=== PATIENT | male | born 1985 | race Two or more races ===

== ENCOUNTER 2019-07-30 11:50 | Inpatient (IN) | payer OTHER ==
[~2019-07-30] VITALS: Ht 182.9 cm; Wt 97.2 kg
[2019-07-30] MEDS ORDERED: ONDANSETRON HCL 4 MG/2 ML VIAL IVP PRN (12:15)
[2019-07-30] MEDS: PANTOPRAZOLE SODIUM 40 MG DR TABLET PO SCH (12:15)
[2019-07-30] MEDS ORDERED: IPRATROPIUM BROMIDE 0.5 MG/2.5 ML NEB SOLUTION NEB PRN (12:15)
[2019-07-30] MEDS ORDERED: HYDROCODONE/ACETAMINOPHEN 5-325 MG TABLET PO PRN (12:15)
[2019-07-30] MEDS ORDERED: ALBUTEROL SULFATE 2.5 MG/0.5 ML NEB SOLUTION NEB PRN (12:15)
[2019-07-30] MEDS ORDERED: 0.9% SODIUM CHLORIDE 10 ML SYRINGE IVP PRN (12:15)
[2019-07-30] MEDS ORDERED: MAGNESIUM HYDROXIDE SUSPENSION 30 ML UDCUP PO PRN (12:15)
[2019-07-30] MEDS ORDERED: ACETAMINOPHEN 325 MG TABLET PO PRN (12:15)
[2019-07-30] MEDS ORDERED: DOCUSATE SODIUM 100 MG CAPSULE PO PRN (12:15)
[2019-07-30] MEDS ORDERED: BISACODYL 10 MG RECTAL RECTAL SUPPOSITORY PR PRN (12:15)
[2019-07-30 14:26] VITALS: BP 137/87
[2019-07-30 20:10] VITALS: BP 134/89
[2019-07-30 23:25] VITALS: BP 135/95
[2019-07-31 05:40] VITALS: BP 129/90
[2019-07-31 07:30] VITALS: BP 116/84
[2019-07-31] MEDS: PANTOPRAZOLE SODIUM 40 MG DR TABLET PO SCH (08:57)
[2019-07-31] MEDS ORDERED: LORazepam 2 MG/ML VIAL IM PRN (09:15)
[2019-07-31] MEDS ORDERED: HALOPERIDOL LACTATE 5 MG/ML VIAL IM PRN (09:15)
[2019-07-31 11:47] VITALS: BP 140/81
[2019-08-01 00:30] VITALS: BP 124/76
[2019-08-01 04:54] LABS: AMPHET/METH SCREEN,URINE NEGATIVE (NEGATIVE); BARBITURATE SCREEN, URINE NEGATIVE (NEGATIVE); BENZODIAZEPINES SCREEN,URINE NEGATIVE (NEGATIVE); CANNABINOID SCREEN,URINE POSITIVE (NEGATIVE); COCAINE SCREEN,URINE NEGATIVE (NEGATIVE); METHADONE SCREEN, URINE NEGATIVE (NEGATIVE); OPIATE SCREEN,URINE NEGATIVE (NEGATIVE)
[2019-08-01 04:59] LABS: PHENCYCLIDINE SCREEN,URINE NEGATIVE (NEGATIVE)
[2019-08-01 05:55] VITALS: BP 129/87
[2019-08-01 08:05] VITALS: BP 141/96
[2019-08-01] MEDS ORDERED: HALOPERIDOL LACTATE 5 MG/ML VIAL IM ONE (08:45)
[2019-08-01] MEDS ORDERED: LORazepam 2 MG/ML VIAL IM ONE (08:45)
[2019-08-01] MEDS: PANTOPRAZOLE SODIUM 40 MG DR TABLET PO SCH (08:59)
[2019-08-01 16:59] VITALS: BP 121/76
[2019-08-01 22:34] VITALS: BP 109/72
[2019-08-02 06:35] VITALS: BP 138/85
[2019-08-02 07:09] VITALS: BP 132/94
[2019-08-02] MEDS: PANTOPRAZOLE SODIUM 40 MG DR TABLET PO SCH (07:59)
[2019-08-02 11:26] VITALS: BP 136/83
[2019-08-02 15:21] VITALS: BP 133/94
[2019-08-03 06:39] VITALS: BP 135/79
[2019-08-03] MEDS: PANTOPRAZOLE SODIUM 40 MG DR TABLET PO SCH (08:41)
[2019-08-03 11:48] VITALS: BP 140/87
[2019-08-03 15:00] VITALS: BP 143/81
[2019-08-03] MEDS ORDERED: LORazepam 2 MG/ML VIAL IM ONE (17:15)
[2019-08-03] MEDS ORDERED: HALOPERIDOL LACTATE 5 MG/ML VIAL IM ONE (17:15)
[2019-08-03 20:05] VITALS: BP 126/68
[2019-08-03 23:55] VITALS: BP 126/68
[2019-08-04 05:08] VITALS: BP 126/73
[2019-08-04] MEDS: PANTOPRAZOLE SODIUM 40 MG DR TABLET PO SCH (09:00)
[2019-08-04 15:53] VITALS: BP 135/66
[2019-08-04 19:09] VITALS: BP 140/70
[2019-08-05 07:37] VITALS: BP 145/87
[2019-08-05] MEDS: PANTOPRAZOLE SODIUM 40 MG DR TABLET PO SCH (08:15)
[2019-08-05 11:45] VITALS: BP 123/77
[2019-08-05 15:25] VITALS: BP 129/87
[2019-08-05 20:31] VITALS: BP 136/83
[2019-08-06 04:00] VITALS: BP 132/78
[2019-08-06 08:10] VITALS: BP 133/76
[2019-08-06] MEDS: PANTOPRAZOLE SODIUM 40 MG DR TABLET PO SCH (08:11)
[2019-08-06 11:43] VITALS: BP 135/70
[2019-08-06 15:56] VITALS: BP_SYST 123; BP_SYST 140; BP_DIAS 66; BP_DIAS 98
[2019-08-06 20:45] VITALS: BP 127/87
[2019-08-06 23:46] VITALS: BP 138/72
[2019-08-07 04:57] VITALS: BP 132/77
[2019-08-07 07:32] VITALS: BP 142/80
[2019-08-07] MEDS: PANTOPRAZOLE SODIUM 40 MG DR TABLET PO SCH (08:44)
[2019-08-07 11:34] VITALS: BP 143/86
[2019-08-07 14:58] VITALS: BP 138/82
[2019-08-07] MEDS ORDERED: HALOPERIDOL LACTATE 5 MG/ML VIAL IM PRN (15:15)
[2019-08-07 19:15] VITALS: BP 139/60
[2019-08-07] MEDS: RisperiDONE 2 MG TABLET PO SCH (19:43)
[2019-08-07 20:29] VITALS: BP 151/86
[2019-08-08] VITALS (7 sets, daily range): BP systolic 128–144; BP diastolic 74–87
[2019-08-08] MEDS: PANTOPRAZOLE SODIUM 40 MG DR TABLET PO SCH (09:00)
[2019-08-08] MEDS: RisperiDONE 2 MG TABLET PO SCH ×2 (09:26→20:58)
[2019-08-09 04:00] VITALS: BP 130/76
[2019-08-09 08:00] VITALS: BP 132/79
[2019-08-09] MEDS: PANTOPRAZOLE SODIUM 40 MG DR TABLET PO SCH (08:13)
[2019-08-09] MEDS: RisperiDONE 2 MG TABLET PO SCH ×2 (08:13→20:05)
[2019-08-09 11:20] VITALS: BP 118/63
[2019-08-09 15:00] VITALS: BP 127/80
[2019-08-09 19:23] VITALS: BP 140/100
[2019-08-09 23:17] VITALS: BP 127/86
[2019-08-10 05:52] VITALS: BP 116/76
[2019-08-10 08:22] VITALS: BP 141/85
[2019-08-10] MEDS: PANTOPRAZOLE SODIUM 40 MG DR TABLET PO SCH ×2 (08:41→09:00)
[2019-08-10] MEDS: RisperiDONE 2 MG TABLET PO SCH ×2 (08:41→21:45)
[2019-08-10 11:20] VITALS: BP 127/81
[2019-08-10] MEDS ORDERED: LORazepam 2 MG/ML VIAL IM ONE (14:15)
[2019-08-10] MEDS ORDERED: HALOPERIDOL LACTATE 5 MG/ML VIAL IM ONE (14:15)
[2019-08-10] MEDS ORDERED: DiphenhydrAMINE HCL 50 MG/ML VIAL IM SCH (14:15)
[2019-08-10] MEDS ORDERED: DiphenhydrAMINE HCL 50 MG/ML VIAL ONE (14:19)
[2019-08-10 21:46] VITALS: BP 118/68
[2019-08-11 05:05] VITALS: BP 137/80
[2019-08-11] MEDS: PANTOPRAZOLE SODIUM 40 MG DR TABLET PO SCH (09:00)
[2019-08-11] MEDS: RisperiDONE 2 MG TABLET PO SCH (09:35)
[2019-08-11 12:08] VITALS: BP 125/79
[2019-08-11] MEDS ORDERED: HALOPERIDOL LACTATE 5 MG/ML VIAL IM PRN (14:30)
[2019-08-11 15:50] VITALS: BP 97/51
[2019-08-11] MEDS: RisperiDONE CONC 2 MG/2 ML SOLUTION ORAL.SYG PO SCH ×3 (17:40→20:41)
[2019-08-11 17:45] VITALS: BP 133/80
[2019-08-11 23:08] VITALS: BP 140/79
[2019-08-12 05:45] VITALS: BP 142/84
[2019-08-12 07:25] VITALS: BP 143/82
[2019-08-12] MEDS: RisperiDONE CONC 2 MG/2 ML SOLUTION ORAL.SYG PO SCH ×3 (08:00→20:21)
[2019-08-12] MEDS: PANTOPRAZOLE SODIUM 40 MG DR TABLET PO SCH (09:00)
[2019-08-12] MEDS ORDERED: INFLUENZA VIRUS VACCINE QVS 2019-20 (3YR+)/PF 60 MCG/0.5 ML SYRINGE IM ONE (11:00)
[2019-08-12 12:15] VITALS: BP 140/68
[2019-08-12 15:47] VITALS: BP 136/73
[2019-08-12 20:26] VITALS: BP 136/89
[2019-08-12 23:30] VITALS: BP 108/72
[2019-08-13 05:53] VITALS: BP 119/75
[2019-08-13 08:32] VITALS: BP 141/75
[2019-08-13] MEDS: PANTOPRAZOLE SODIUM 40 MG DR TABLET PO SCH (08:38)
[2019-08-13] MEDS: RisperiDONE CONC 2 MG/2 ML SOLUTION ORAL.SYG PO SCH ×3 (08:38→21:06)
[2019-08-13 12:27] VITALS: BP 140/91
[2019-08-13 16:06] VITALS: BP 103/61
[2019-08-13 19:18] VITALS: BP 107/62
[2019-08-13 23:50] VITALS: BP 121/66
[2019-08-14] MEDS: RisperiDONE CONC 2 MG/2 ML SOLUTION ORAL.SYG PO SCH ×3 (10:08→20:07)
[2019-08-14] MEDS: PANTOPRAZOLE SODIUM 40 MG DR TABLET PO SCH (10:08)
[2019-08-14 10:12] VITALS: BP 133/78
[2019-08-14 12:12] VITALS: BP 135/64
[2019-08-14 15:54] VITALS: BP 123/67
[2019-08-14 20:02] VITALS: BP 129/72
[2019-08-15 06:41] VITALS: BP 132/58
[2019-08-15] MEDS: RisperiDONE CONC 2 MG/2 ML SOLUTION ORAL.SYG PO SCH ×4 (07:52→21:20)
[2019-08-15] MEDS: PANTOPRAZOLE SODIUM 40 MG DR TABLET PO SCH ×2 (07:52→08:49)
[2019-08-15 12:01] VITALS: BP 137/71
[2019-08-15 15:30] VITALS: BP 150/95
[2019-08-15 19:16] VITALS: BP 127/80
[2019-08-15 23:49] VITALS: BP 131/72
[2019-08-16] VITALS (7 sets, daily range): BP systolic 120–134; BP diastolic 73–92
[2019-08-16] MEDS: PANTOPRAZOLE SODIUM 40 MG DR TABLET PO SCH (09:00)
[2019-08-16] MEDS: RisperiDONE CONC 2 MG/2 ML SOLUTION ORAL.SYG PO SCH ×3 (09:39→20:24)
[2019-08-17 00:05] VITALS: BP 113/76
[2019-08-17] MEDS: RisperiDONE CONC 2 MG/2 ML SOLUTION ORAL.SYG PO SCH (08:56)
[2019-08-17] MEDS: PANTOPRAZOLE SODIUM 40 MG DR TABLET PO SCH (08:58)
[2019-08-17 09:00] VITALS: BP 133/71
[2019-08-17] MEDS ORDERED: RISP2 PO (12:18)
[2019-08-17 12:30] VITALS: BP 129/70
== END 2019-08-17 16:30 | DRG 885 ==
LOC: EMS 11:52 → 6S 12:30
PROVIDERS: ADMIT Internal Medicine; ATTEND Internal Medicine
DX: F20.9 Schizophrenia, unspecified (principal); F29 Unspecified psychosis not due to a substance or known physiological condition; F15.10 Other stimulant abuse, uncomplicated; R45.1 Restlessness and agitation
CPT/HCPCS: 80307; J1200; J1630; J2060

== ENCOUNTER 2019-09-12 11:05 | Inpatient (IN) | payer OTHER ==
[~2019-09-12] VITALS: Ht 177.8 cm; Wt 90.9 kg
[~2019-09-12 11:05] MED LIST: RISP2 PO
[2019-09-12] MEDS ORDERED: HALOPERIDOL LACTATE 5 MG/ML VIAL IM ONE (11:15)
[2019-09-12] MEDS ORDERED: LORazepam 2 MG/ML VIAL IM ONE (11:15)
[2019-09-12] MEDS ORDERED: DiphenhydrAMINE HCL 50 MG/ML VIAL IM ONE (11:15)
[2019-09-12] MEDS ORDERED: ONDANSETRON HCL 4 MG/2 ML VIAL IVP PRN (12:15)
[2019-09-12] MEDS ORDERED: ACETAMINOPHEN 325 MG TABLET PO PRN (12:15)
[2019-09-12 13:30] VITALS: BP 130/68
[2019-09-12] MEDS ORDERED: INFLUENZA VIRUS VACCINE QVS 2019-20 (3YR+)/PF 60 MCG/0.5 ML SYRINGE IM ONE (17:45)
[2019-09-12] MEDS ORDERED: QUEtiapine FUMARATE 25 MG TABLET PO PRN (21:00)
[2019-09-12] MEDS ORDERED: QUEtiapine FUMARATE 25 MG TABLET PO SCH (21:00)
[2019-09-12 23:15] VITALS: BP 126/79
[2019-09-14] MEDS ORDERED: ZOLPIDEM TARTRATE 5 MG TABLET PO PRN (14:15)
[2019-09-14] MEDS ORDERED: ONDANSETRON HCL 4 MG/2 ML VIAL IVP PRN (14:15)
[2019-09-14] MEDS ORDERED: ACETAMINOPHEN 325 MG TABLET PO PRN (14:15)
[2019-09-14] MEDS ORDERED: IPRATROPIUM BROMIDE 0.5 MG/2.5 ML NEB SOLUTION NEB PRN (14:15)
[2019-09-14] MEDS ORDERED: BISACODYL 10 MG RECTAL RECTAL SUPPOSITORY PR PRN (14:15)
[2019-09-14] MEDS ORDERED: ALBUTEROL SULFATE 2.5 MG/0.5 ML NEB SOLUTION NEB PRN (14:15)
[2019-09-14] MEDS ORDERED: MAGNESIUM HYDROXIDE SUSPENSION 30 ML UDCUP PO PRN (14:15)
[2019-09-14] MEDS: HEPARIN SODIUM,PORCINE 5,000 UNITS/ML VIAL SQ SCH (16:00)
[2019-09-14] MEDS: DOCUSATE SODIUM 100 MG CAPSULE PO SCH (21:00)
[2019-09-15] MEDS: HEPARIN SODIUM,PORCINE 5,000 UNITS/ML VIAL SQ SCH ×3 (08:00→15:49)
[2019-09-15] MEDS: DOCUSATE SODIUM 100 MG CAPSULE PO SCH ×2 (08:31→21:00)
[2019-09-15 11:45] VITALS: BP 124/72
[2019-09-16] MEDS: HEPARIN SODIUM,PORCINE 5,000 UNITS/ML VIAL SQ SCH ×2 (08:00→16:00)
[2019-09-16] MEDS: DOCUSATE SODIUM 100 MG CAPSULE PO SCH (09:00)
[2019-09-17] MEDS: HEPARIN SODIUM,PORCINE 5,000 UNITS/ML VIAL SQ SCH ×4 (08:00→23:59)
[2019-09-17] MEDS: DOCUSATE SODIUM 100 MG CAPSULE PO SCH ×2 (08:43→20:18)
[2019-09-17 22:27] LABS: AMPHET/METH SCREEN,URINE NEGATIVE (NEGATIVE); BARBITURATE SCREEN, URINE NEGATIVE (NEGATIVE); BENZODIAZEPINES SCREEN,URINE NEGATIVE (NEGATIVE); CANNABINOID SCREEN,URINE NEGATIVE (NEGATIVE); COCAINE SCREEN,URINE NEGATIVE (NEGATIVE); METHADONE SCREEN, URINE NEGATIVE (NEGATIVE); OPIATE SCREEN,URINE NEGATIVE (NEGATIVE); PHENCYCLIDINE SCREEN,URINE NEGATIVE (NEGATIVE)
[2019-09-18] MEDS: HEPARIN SODIUM,PORCINE 5,000 UNITS/ML VIAL SQ SCH ×2 (08:00→15:45)
[2019-09-18] MEDS: DOCUSATE SODIUM 100 MG CAPSULE PO SCH ×2 (09:00→21:00)
[2019-09-19] MEDS: HEPARIN SODIUM,PORCINE 5,000 UNITS/ML VIAL SQ SCH ×4 (08:00→23:21)
[2019-09-19] MEDS: DOCUSATE SODIUM 100 MG CAPSULE PO SCH ×2 (09:00→20:14)
[2019-09-19] MEDS ORDERED: HALOPERIDOL 5 MG TABLET PO PRN (13:00)
[2019-09-19] MEDS ORDERED: HALOPERIDOL LACTATE 5 MG/ML VIAL IM PRN (13:00)
[2019-09-20] MEDS: HEPARIN SODIUM,PORCINE 5,000 UNITS/ML VIAL SQ SCH ×3 (08:00→23:29)
[2019-09-20] MEDS: DOCUSATE SODIUM 100 MG CAPSULE PO SCH ×2 (09:00→20:08)
[2019-09-21] MEDS: HEPARIN SODIUM,PORCINE 5,000 UNITS/ML VIAL SQ SCH ×2 (08:00→15:57)
[2019-09-21] MEDS: DOCUSATE SODIUM 100 MG CAPSULE PO SCH ×2 (08:52→21:00)
[2019-09-22] MEDS: HEPARIN SODIUM,PORCINE 5,000 UNITS/ML VIAL SQ SCH ×3 (08:00→16:00)
[2019-09-22] MEDS: DOCUSATE SODIUM 100 MG CAPSULE PO SCH ×2 (08:40→20:53)
[2019-09-23] MEDS: HEPARIN SODIUM,PORCINE 5,000 UNITS/ML VIAL SQ SCH ×3 (08:00→16:00)
[2019-09-23] MEDS: DOCUSATE SODIUM 100 MG CAPSULE PO SCH ×2 (09:00→21:00)
[2019-09-24] MEDS: HEPARIN SODIUM,PORCINE 5,000 UNITS/ML VIAL SQ SCH ×3 (08:00→16:00)
[2019-09-24] MEDS: DOCUSATE SODIUM 100 MG CAPSULE PO SCH ×2 (09:00→21:00)
[2019-09-25] MEDS: HEPARIN SODIUM,PORCINE 5,000 UNITS/ML VIAL SQ SCH ×2 (08:00)
[2019-09-25] MEDS: DOCUSATE SODIUM 100 MG CAPSULE PO SCH (08:17)
== END 2019-09-25 12:57 | DRG 885 ==
LOC: EMS 11:06 → 6S 12:18
PROVIDERS: ADMIT Hospitalist; ATTEND Hospitalist
DX: F20.0 Paranoid schizophrenia (principal); F31.9 Bipolar disorder, unspecified; F41.9 Anxiety disorder, unspecified; Z53.29 Procedure and treatment not carried out because of patient's decision for other reasons; Z79.899 Other long term (current) drug therapy
CPT/HCPCS: 99291; J1200; J1630; J1644; J2060

== ENCOUNTER 2019-09-25 15:01 | Inpatient (IN) | payer OTHER ==
[~2019-09-25] VITALS: Ht 182.9 cm; Wt 93.0 kg
[2019-09-25] MEDS ORDERED: ACETAMINOPHEN 325 MG TABLET PO PRN ×2 (16:45→17:15)
[2019-09-25] MEDS ORDERED: 0.9% SODIUM CHLORIDE 10 ML SYRINGE IVP PRN (16:45)
[2019-09-25] MEDS ORDERED: MAGNESIUM HYDROXIDE SUSPENSION 30 ML UDCUP PO PRN (17:15)
[2019-09-25 18:02] VITALS: BP 134/85
[2019-09-25] MEDS ORDERED: INFLUENZA VIRUS VACCINE QVS 2019-20 (3YR+)/PF 60 MCG/0.5 ML SYRINGE IM ONE (19:00)
[2019-09-25] MEDS: DOCUSATE SODIUM 100 MG CAPSULE PO SCH (20:08)
[2019-09-26] MEDS: DOCUSATE SODIUM 100 MG CAPSULE PO SCH ×2 (08:47→20:38)
[2019-09-27] MEDS: DOCUSATE SODIUM 100 MG CAPSULE PO SCH ×2 (09:00→21:00)
[2019-09-28] MEDS: DOCUSATE SODIUM 100 MG CAPSULE PO SCH ×2 (09:00→21:00)
[2019-09-29] MEDS: DOCUSATE SODIUM 100 MG CAPSULE PO SCH ×2 (09:00→21:00)
[2019-09-30] MEDS: DOCUSATE SODIUM 100 MG CAPSULE PO SCH ×2 (08:40→20:32)
[2019-10-01] MEDS: DOCUSATE SODIUM 100 MG CAPSULE PO SCH ×2 (08:28→21:00)
[2019-10-02] MEDS: DOCUSATE SODIUM 100 MG CAPSULE PO SCH ×2 (08:38→21:00)
[2019-10-03] MEDS: DOCUSATE SODIUM 100 MG CAPSULE PO SCH ×2 (09:00→20:18)
[2019-10-04] MEDS: DOCUSATE SODIUM 100 MG CAPSULE PO SCH ×2 (08:18→20:20)
[2019-10-04] MEDS: HALOPERIDOL 5 MG TABLET PO SCH (20:20)
[2019-10-05] MEDS: HALOPERIDOL 5 MG TABLET PO SCH ×2 (09:00→21:00)
[2019-10-05] MEDS: DOCUSATE SODIUM 100 MG CAPSULE PO SCH ×2 (09:00→21:00)
[2019-10-06] MEDS: DOCUSATE SODIUM 100 MG CAPSULE PO SCH ×2 (07:40→21:00)
[2019-10-06] MEDS: HALOPERIDOL 5 MG TABLET PO SCH ×2 (07:40→21:00)
[2019-10-06] MEDS ORDERED: PIPERONYL BUTOXIDE/PYRETHRINS 120 ML SHAMPOO TP ONE (08:45)
[2019-10-07] MEDS: HALOPERIDOL 5 MG TABLET PO SCH ×2 (07:34→20:15)
[2019-10-07] MEDS: DOCUSATE SODIUM 100 MG CAPSULE PO SCH ×2 (07:34→20:15)
[2019-10-08] MEDS: HALOPERIDOL 5 MG TABLET PO SCH ×2 (09:00→21:00)
[2019-10-08] MEDS: DOCUSATE SODIUM 100 MG CAPSULE PO SCH ×2 (09:00→21:00)
[2019-10-09] MEDS: HALOPERIDOL 5 MG TABLET PO SCH ×2 (09:00→20:56)
[2019-10-09] MEDS: DOCUSATE SODIUM 100 MG CAPSULE PO SCH ×2 (09:00→20:57)
[2019-10-10] MEDS: HALOPERIDOL 5 MG TABLET PO SCH (09:00)
[2019-10-10] MEDS: DOCUSATE SODIUM 100 MG CAPSULE PO SCH (09:00)
[2019-10-10] MEDS ORDERED: HALO5TAB2 PO (15:13)
== END 2019-10-10 20:00 | DRG 885 ==
LOC: EMS 15:03 → 6S 17:30
PROVIDERS: ADMIT Internal Medicine; ATTEND Internal Medicine
DX: F20.9 Schizophrenia, unspecified (principal); Z91.19 Patient's noncompliance with other medical treatment and regimen; Z79.899 Other long term (current) drug therapy; Z28.21 Immunization not carried out because of patient refusal

== ENCOUNTER 2019-10-10 22:06 | Inpatient (IN) | payer OTHER ==
[~2019-10-10] VITALS: Ht 182.9 cm; Wt 95.5 kg
[~2019-10-10 22:06] MED LIST changes: +HALO5TAB2 PO
[2019-10-10 22:37] LABS: AMPHET/METH SCREEN,URINE NEGATIVE (NEGATIVE); BARBITURATE SCREEN, URINE NEGATIVE (NEGATIVE); BENZODIAZEPINES SCREEN,URINE NEGATIVE (NEGATIVE); CANNABINOID SCREEN,URINE NEGATIVE (NEGATIVE); COCAINE SCREEN,URINE NEGATIVE (NEGATIVE); METHADONE SCREEN, URINE NEGATIVE (NEGATIVE); OPIATE SCREEN,URINE NEGATIVE (NEGATIVE)
[2019-10-10 22:38] LABS: PHENCYCLIDINE SCREEN,URINE NEGATIVE (NEGATIVE)
[2019-10-10] MEDS ORDERED: IBUPROFEN 400 MG TABLET PO PRN (23:15)
[2019-10-10] MEDS ORDERED: MAG HYDROX/AL HYDROX/SIMETH ES 30 ML SUSPENSION UDCUP PO PRN (23:15)
[2019-10-10] MEDS ORDERED: NICOTINE 14 MG/24 HOUR PATCH TD PRN (23:15)
[2019-10-10] MEDS ORDERED: MAGNESIUM HYDROXIDE SUSPENSION 30 ML UDCUP PO PRN (23:15)
[2019-10-10] MEDS ORDERED: CloNIDine HCL 0.1 MG TABLET PO PRN (23:15)
[2019-10-10] MEDS ORDERED: ALBUTEROL SULFATE HFA 90 MCG/PUFF 8 GM INHALER IH PRN (23:15)
[2019-10-10] MEDS ORDERED: DOCUSATE SODIUM 100 MG CAPSULE PO PRN (23:15)
[2019-10-10] MEDS ORDERED: ACETAMINOPHEN 325 MG TABLET PO PRN (23:15)
[2019-10-10] MEDS ORDERED: PETROLATUM,WHITE 28 GM JELLY TP PRN (23:15)
[2019-10-10] MEDS ORDERED: LOPERAMIDE HCL 2 MG CAPSULE PO PRN (23:15)
[2019-10-10] MEDS ORDERED: GuaiFENesin/D-METHORPHAN [SUGAR-FREE] 200-20MG/10 ML SYRUP UDCUP PO PRN (23:15)
[2019-10-10] MEDS ORDERED: ONDANSETRON HCL 4 MG TABLET PO PRN (23:15)
[2019-10-10 23:38] VITALS: BP 136/78
[2019-10-11] MEDS: HALOPERIDOL 5 MG TABLET PO SCH (21:00)
[2019-10-12] MEDS: HALOPERIDOL 5 MG TABLET PO SCH ×2 (09:00→21:00)
[2019-10-13] MEDS: HALOPERIDOL 5 MG TABLET PO SCH ×2 (09:00→20:18)
[2019-10-14] MEDS: HALOPERIDOL 5 MG TABLET PO SCH ×2 (08:38→20:30)
[2019-10-14 09:12] VITALS: BP 117/60
[2019-10-15] MEDS: HALOPERIDOL 5 MG TABLET PO SCH ×2 (09:00→21:00)
[2019-10-16] MEDS: HALOPERIDOL 5 MG TABLET PO SCH ×2 (08:28→20:00)
[2019-10-17] MEDS: HALOPERIDOL 5 MG TABLET PO SCH ×2 (09:00→20:27)
[2019-10-18] MEDS: HALOPERIDOL 5 MG TABLET PO SCH ×2 (08:22→21:00)
[2019-10-19] MEDS: HALOPERIDOL 5 MG TABLET PO SCH ×2 (09:00→21:00)
[2019-10-20] MEDS: HALOPERIDOL 5 MG TABLET PO SCH ×2 (09:00→21:00)
[2019-10-21] MEDS: HALOPERIDOL 5 MG TABLET PO SCH ×2 (08:52→21:00)
[2019-10-22] MEDS: HALOPERIDOL 5 MG TABLET PO SCH (08:32)
[2019-10-23] MEDS: HALOPERIDOL 5 MG TABLET PO SCH ×2 (09:00→21:00)
[2019-10-23 20:15] VITALS: BP 122/68
[2019-10-24] MEDS: HALOPERIDOL 5 MG TABLET PO SCH (08:31)
[2019-10-24] MEDS ORDERED: DiphenhydrAMINE HCL 50 MG/ML VIAL ONE (16:27)
[2019-10-24] MEDS ORDERED: HALOPERIDOL LACTATE 5 MG/ML VIAL ONE (16:28)
[2019-10-24] MEDS ORDERED: LORazepam 2 MG/ML VIAL ONE (16:29)
[2019-10-24] MEDS ORDERED: HALOPERIDOL LACTATE 5 MG/ML VIAL IM ONE (16:30)
[2019-10-24] MEDS ORDERED: DiphenhydrAMINE HCL 50 MG/ML VIAL IM ONE (16:30)
[2019-10-24] MEDS ORDERED: LORazepam 2 MG/ML VIAL IM ONE (16:30)
== END 2019-10-24 17:52 | DRG 885 ==
LOC: EMS 22:09 → 6S 23:09
PROVIDERS: ADMIT Internal Medicine; ATTEND Internal Medicine
DX: F25.0 Schizoaffective disorder, bipolar type (principal); F15.10 Other stimulant abuse, uncomplicated; Z91.19 Patient's noncompliance with other medical treatment and regimen
CPT/HCPCS: J1200; J1630; J2060

== ENCOUNTER 2019-11-07 13:12 | Inpatient (IN) | payer OTHER ==
[~2019-11-07] VITALS: Ht 180.3 cm; Wt 95.5 kg
[2019-11-07] MEDS ORDERED: HALOPERIDOL LACTATE 5 MG/ML VIAL ONE (13:39)
[2019-11-07] MEDS ORDERED: LORazepam 2 MG/ML VIAL ONE (13:40)
[2019-11-07] MEDS ORDERED: DiphenhydrAMINE HCL 50 MG/ML VIAL ONE (13:40)
[2019-11-07] MEDS ORDERED: DiphenhydrAMINE HCL 50 MG/ML VIAL IM ONE (13:45)
[2019-11-07] MEDS ORDERED: HALOPERIDOL LACTATE 5 MG/ML VIAL IM ONE (13:45)
[2019-11-07] MEDS ORDERED: LORazepam 2 MG/ML VIAL IM ONE (13:45)
[2019-11-08] MEDS ORDERED: GuaiFENesin/D-METHORPHAN [SUGAR-FREE] 200-20MG/10 ML SYRUP UDCUP PO PRN (11:45)
[2019-11-08] MEDS ORDERED: ACETAMINOPHEN 325 MG TABLET PO PRN (11:45)
[2019-11-08] MEDS ORDERED: ONDANSETRON HCL 4 MG TABLET PO PRN (11:45)
[2019-11-08] MEDS ORDERED: LOPERAMIDE HCL 2 MG CAPSULE PO PRN (11:45)
[2019-11-08] MEDS ORDERED: NICOTINE 14 MG/24 HOUR PATCH TD PRN (11:45)
[2019-11-08] MEDS ORDERED: MAG HYDROX/AL HYDROX/SIMETH ES 30 ML SUSPENSION UDCUP PO PRN (11:45)
[2019-11-08] MEDS ORDERED: PETROLATUM,WHITE 28 GM JELLY TP PRN (11:45)
[2019-11-08] MEDS ORDERED: ALBUTEROL SULFATE HFA 90 MCG/PUFF 8 GM INHALER IH PRN (11:45)
[2019-11-08] MEDS ORDERED: MAGNESIUM HYDROXIDE SUSPENSION 30 ML UDCUP PO PRN (11:45)
[2019-11-08] MEDS ORDERED: IBUPROFEN 400 MG TABLET PO PRN (11:45)
[2019-11-08] MEDS ORDERED: CloNIDine HCL 0.1 MG TABLET PO PRN (11:45)
[2019-11-08] MEDS ORDERED: DOCUSATE SODIUM 100 MG CAPSULE PO PRN (11:45)
[2019-11-08] MEDS ORDERED: LORazepam 1 MG TABLET PO PRN (19:00)
[2019-11-08] MEDS ORDERED: HALOPERIDOL 5 MG TABLET PO PRN (19:00)
[2019-11-08] MEDS: HALOPERIDOL 5 MG TABLET PO SCH (21:00)
[2019-11-09 07:41] VITALS: BP 124/79
[2019-11-09] MEDS: HALOPERIDOL 5 MG TABLET PO SCH ×2 (09:00→20:45)
[2019-11-10] MEDS: HALOPERIDOL 5 MG TABLET PO SCH ×2 (07:58→19:56)
[2019-11-11] MEDS: HALOPERIDOL 5 MG TABLET PO SCH (08:13)
[2019-11-12] MEDS: HALOPERIDOL 5 MG TABLET PO SCH ×2 (07:52→21:00)
[2019-11-13] MEDS: HALOPERIDOL 5 MG TABLET PO SCH ×2 (08:56→20:13)
[2019-11-13] MEDS ORDERED: HALOPERIDOL LACTATE 5 MG/ML VIAL IM PRN (16:00)
[2019-11-13 20:13] VITALS: BP 139/80
[2019-11-14] MEDS: HALOPERIDOL 5 MG TABLET PO SCH ×2 (08:23→21:00)
[2019-11-14 21:23] VITALS: BP 135/78
[2019-11-15] MEDS: HALOPERIDOL 5 MG TABLET PO SCH (09:10)
== END 2019-11-15 18:32 | DRG 885 ==
LOC: EMS 13:14 → 6S 17:15
PROVIDERS: ADMIT Internal Medicine; ATTEND Internal Medicine
DX: F25.0 Schizoaffective disorder, bipolar type (principal); X58.XXXA Exposure to other specified factors, initial encounter; Y93.89 Activity, other specified; Y92.89 Other specified places as the place of occurrence of the external cause; Y99.8 Other external cause status; W22.01XA Walked into wall, initial encounter
CPT/HCPCS: 70450; 96372; 99291; J1200; J1630; J2060

== ENCOUNTER 2019-11-23 13:27 | Inpatient (IN) | payer OTHER ==
[~2019-11-23] VITALS: Ht 182.9 cm; Wt 99.8 kg
[2019-11-23] MEDS ORDERED: BENZ2TAB10 PO (13:50)
[2019-11-23] MEDS ORDERED: HALO100A IM (13:50)
[2019-11-23] MEDS ORDERED: LOPERAMIDE HCL 2 MG CAPSULE PO PRN (20:00)
[2019-11-23] MEDS ORDERED: ALBUTEROL SULFATE HFA 90 MCG/PUFF 8 GM INHALER IH PRN (20:00)
[2019-11-23] MEDS ORDERED: MAG HYDROX/AL HYDROX/SIMETH ES 30 ML SUSPENSION UDCUP PO PRN (20:00)
[2019-11-23] MEDS ORDERED: IBUPROFEN 400 MG TABLET PO PRN (20:00)
[2019-11-23] MEDS ORDERED: NICOTINE 14 MG/24 HOUR PATCH TD PRN (20:00)
[2019-11-23] MEDS ORDERED: DOCUSATE SODIUM 100 MG CAPSULE PO PRN (20:00)
[2019-11-23] MEDS ORDERED: MAGNESIUM HYDROXIDE SUSPENSION 30 ML UDCUP PO PRN (20:00)
[2019-11-23] MEDS ORDERED: PETROLATUM,WHITE 28 GM JELLY TP PRN (20:00)
[2019-11-23] MEDS ORDERED: ONDANSETRON HCL 4 MG TABLET PO PRN (20:00)
[2019-11-23] MEDS ORDERED: ACETAMINOPHEN 325 MG TABLET PO PRN (20:00)
[2019-11-23] MEDS ORDERED: GuaiFENesin/D-METHORPHAN [SUGAR-FREE] 200-20MG/10 ML SYRUP UDCUP PO PRN (20:00)
[2019-11-23] MEDS ORDERED: CloNIDine HCL 0.1 MG TABLET PO PRN (20:00)
[2019-11-24 04:38] LABS: APPEARANCE,URINE CLEAR (CLEAR); BILIRUBIN,URINE NEGATIVE (NEGATIVE); GLUCOSE, URINE (UA) NEGATIVE (NEGATIVE); KETONES,URINE NEGATIVE (NEGATIVE); LEUKOCYTE ESTERASE ,URINE NEGATIVE (NEGATIVE); NITRATE,URINE NEGATIVE (NEGATIVE); OCCULT BLOOD,URINE NEGATIVE (NEGATIVE); PH,URINE 6.5 (5.0-8.0); PROTEIN,URINE NEGATIVE (NEGATIVE); UROBILINOGEN,URINE 0.2 mg/dL (<=1.0)
[2019-11-24 04:43] LABS: AMPHET/METH SCREEN,URINE NEGATIVE (NEGATIVE); BARBITURATE SCREEN, URINE NEGATIVE (NEGATIVE); BENZODIAZEPINES SCREEN,URINE NEGATIVE (NEGATIVE); CANNABINOID SCREEN,URINE NEGATIVE (NEGATIVE); COCAINE SCREEN,URINE NEGATIVE (NEGATIVE); METHADONE SCREEN, URINE NEGATIVE (NEGATIVE); OPIATE SCREEN,URINE NEGATIVE (NEGATIVE); PHENCYCLIDINE SCREEN,URINE NEGATIVE (NEGATIVE)
[2019-11-24 07:38] VITALS: BP 127/64
[2019-11-24 19:56] VITALS: BP 122/61
[2019-11-25 20:00] VITALS: BP 124/83
[2019-11-26 07:56] VITALS: BP 127/79
[2019-11-26 19:58] VITALS: BP 116/78
[2019-11-27 17:25] VITALS: BP 119/76
[2019-11-27 20:25] VITALS: BP 136/71
[2019-11-28 06:17] VITALS: BP 108/73
== END 2019-11-28 14:40 | DRG 885 ==
LOC: EMS 13:28 → 6S 14:50
PROVIDERS: ADMIT Hospitalist; ATTEND Hospitalist
DX: F31.9 Bipolar disorder, unspecified (principal); R00.0 Tachycardia, unspecified; F20.9 Schizophrenia, unspecified
CPT/HCPCS: 80307